=== PATIENT | male | born 1995 | race Caucasian/White ===

== ENCOUNTER 2022-05-07 15:00 | Emergency (ER) | payer MEDICAID ==
[~2022-05-07] VITALS: Ht 121.9 cm; Wt 35.0 kg
[2022-05-07 16:19] LABS: BASOPHILS % 0.4 % (0.0-2.0); EOSINOPHILS % 2.4 % (0.0-5.0); HEMATOCRIT. 45.8 % (42.0-52.0); HEMOGLOBIN. 14.8 g/dL (14.0-18.0); LYMPHOCYTES % 19.1 % (20.0-50.0); MEAN CORPUSCULAR HEMOGLOBIN 30.2 pg (28.0-32.0); MEAN CORPUSCULAR VOLUME 93.3 fL (80.0-94.0); MEAN PLATELET VOLUME 7.3 fl (7.4-10.4); MONOCYTES % 6.1 % (2.0-8.0); PLATELET 244 x1000/uL (130-400); RED BLOOD CELL COUNT 4.91 mill/uL (4.7-6.1)
[2022-05-07 16:27] LABS: CHLORIDE 104 mEq/L (98-107)
[2022-05-07] MEDS ORDERED: LEVETIRACETAM 1000MG PREMIX 100 ML IV ONE (16:30)
[2022-05-07 16:36] LABS: ETHANOL BLOOD < 10 mg/dL; PHOSPHORUS 3.8 mg/dL (2.5-4.9)
[2022-05-07 22:07] LABS: CLARITY URINE CLEAR (CLEAR); COLOR URINE YELLOW (YELLOW); KETONES URINE 3+ (NEGATIVE); LEUKOCYTE ESTERASE URINE NEGATIVE (NEGATIVE); NITRITE URINE NEGATIVE (NEGATIVE); OCCULT BLOOD URINE 1+ (NEGATIVE); PH URINE 7.5 (4.5-8.0); PROTEIN URINE NEGATIVE (NEGATIVE); SPECIFIC GRAVITY URINE 1.022 (1.005-1.030)
[2022-05-07] MEDS ORDERED: KEPP500 MT (22:13)
[2022-05-07 22:29] LABS: *AMPHETAMINES SCREEN URINE NEGATIVE (NEGATIVE); *BARBITURATES SCREEN URINE NEGATIVE (NEGATIVE); *BENZODIAZEPINES SCREEN URINE NEGATIVE (NEGATIVE); *COCAINE SCREEN URINE NEGATIVE (NEGATIVE); CANNABINOID URINE SCREEN NEGATIVE (NEGATIVE); METHADONE URINE SCREEN NEGATIVE (NEGATIVE); OPIATES URINE SCREEN NEGATIVE (NEGATIVE); PHENCYCLIDINE URINE SCREEN NEGATIVE (NEGATIVE)
[2022-05-08 00:20] VITALS: BP 105/87
== END 2022-05-08 00:38 | disposition home or self-care (01) ==
LOC: ER 15:00
DX: R56.9 Unspecified convulsions (principal)
CPT/HCPCS: 36415; 70450; 71045; 80053; 80305; 80320; 81003; 83735; 84100; 85025; 96365; 96366; 99291; J1953; G0480